=== PATIENT | female | born 1990 ===

== ENCOUNTER 2017-04-25 13:09 | Emergency (ER) | payer MEDICAID, OTHER ==
[2017-04-25 13:56] VITALS: BP 130/69; PULSE 78; RESP 18; TEMP 98.1; O2SAT 100
[2017-04-25 14:36] LABS: RBC URINE 114 /hpf (0-3); URINE BILIRUBIN NEGATIVE (NEGATIVE); URINE BLOOD 3+ (NEGATIVE); URINE COLOR Yellow (YELLOW); URINE GLUCOSE (UA) NORMAL (Normal); URINE KETONE NEGATIVE (NEGATIVE); URINE LEUKOCYTE ESTERASE 2+ Leu/uL (Negative); URINE PROTEIN 1+ mg/dL (NEGATIVE); URINE UROBILINOGEN NORMAL mg/dL (0.2-1.0); WBC URINE 116 /hpf (0-5)
[2017-04-25] MEDS ORDERED: cefTRIAXone (Rocephin) 250 mg Inj IM STA (15:13)
--- NOTE | 2017-04-25 15:38 | C.PDOC ---
History Of Present Illness 26 yr old female presents to the ER with complaints of dysuria and blood when she wipes with small clots since 4am today. Patient recently admits to having unprotected sex. Patient also reports of clear, vagina discharge which she states is typical for her. Patient reports LMP was 04/13/17 and usually has regular menses. Patient denies fever, chills, chest pain, SOB, cough, nausea, vomiting, weakness or numbness. Time Seen by Provider: 04/25/17 13:57 Chief Complaint (Nursing): Female Genitourinary History Per: Patient History/Exam Limitations: no limitations Onset/Duration Of Symptoms: Sudden Onset (Since 4am today) Current Symptoms Are (Timing): Still Present Past Medical History Reviewed: Historical Data, Nursing Documentation, Vital Signs Vital Signs: Last Vital Signs Temp 98.1 F 04/25/17 13:52 Pulse 78 04/25/17 13:52 Resp 18 04/25/17 13:52 BP 130/69 04/25/17 13:52 Pulse Ox 100 04/25/17 15:38 - Medical History PMH: Depression Family History: States: No Known Family Hx - Social History Hx Tobacco Use: No Hx Alcohol Use: No Hx Substance Use: No - Immunization History Hx Tetanus Toxoid Vaccination: No Hx Influenza Vaccination: No Hx Pneumococcal Vaccination: No Review Of Systems Except As Marked, All Systems Reviewed And Found Negative. Constitutional: Negative for: Fever, Chills Cardiovascular: Negative for: Chest Pain Respiratory: Negative for: Cough, Shortness of Breath Gastrointestinal: Negative for: Nausea, Vomiting Genitourinary: Positive for: Dysuria, Vaginal Discharge (Clear. Typical for patient.), Vaginal Bleeding (Upon wiping, with clots.) Neurological: Negative for: Weakness, Numbness Physical Exam - Physical Exam Appears: Non-toxic, No Acute Distress Skin: Warm, Dry, No Rash Head: Atraumatic, Normacephalic Oral Mucosa: Moist Chest: Symmetrical, No Tenderness Cardiovascular: Rhythm Regular, No Murmur Respiratory: Normal Breath Sounds, No Rales, No Rhonchi, No Stridor, No Wheezing Gastrointestinal/Abdominal: Soft, Tenderness (Mild tenderness, superpubic.) Pelvic: No Vaginal Bleeding, Vaginal Discharge (Scant,k white discharge at cervix. ), Cervical Motion Tenderness, Adnexal Tenderness (Right), Other ( Cervix appears friable and erythematous.) Extremity: Normal ROM, No Swelling Neurological/Psych: Oriented x3, Normal Speech, Normal Motor ED Course And Treatment O2 Sat by Pulse Oximetry: 100 (RA) Pulse Ox Interpretation: Normal Progress Note: PLAN: Chlamydia GC, HCG, Urinalysis, Zithromycin PO & Rocephin IM. Disposition Counseled Patient/Family Regarding: Studies Performed, Diagnosis, Need For Followup, Rx Given - Disposition Referrals: Lety Montemayor MD [Medical Doctor] - Disposition: HOME/ ROUTINE Disposition Time: 15:40 Condition: STABLE Additional Instructions: FOLLOW UP WITH YOUR OCCUPANCY SPECIALIST WITHIN 1 WEEK USE MEDICATIONS UNTIL FINISHED RETURN TO ER IF SYMPTOMS WORSEN Prescriptions: Ciprofloxacin [Cipro] 1 tab PO BID #14 tab metroNIDAZOLE [Flagyl] 500 mg PO BID #14 tab Instructions: Cervicitis (ED), Urinary Tract Infection in Women (ED) Forms: [employer] (Pakistani) Print Language: ITALIAN - POA Present On Arrival: None - Clinical Impression Clinical Impression: Cervicitis, Urinary tract infection - Scribe Statement The provider has reviewed the documentation as recorded by the Chad Rojas Provider Attestation: All medical record entries made by the Chad were at my direction and personally dictated by me. I have reviewed the chart and agree that the record accurately reflects my personal performance of the history, physical exam, medical decision making, and the department course for this patient. I have also personally directed, reviewed, and agree with the discharge instructions and disposition.
== END 2017-04-25 16:07 | disposition home or self-care (01) ==
LOC: C.ER 13:09
DX: N72 Inflammatory disease of cervix uteri (principal); N39.0 Urinary tract infection, site not specified
CPT/HCPCS: 81001; 84703; 87086; 87181; 87491; 87591; 96372; 99284; J0696

== ENCOUNTER 2017-08-28 14:19 | Emergency (ER) | payer MEDICAID ==
[2017-08-28 14:29] VITALS: RESP 18
--- NOTE | 2017-08-28 15:15 | C.PDOC ---
History Of Present Illness 27 y/o female with history of ovarian cyst and currently 7 weeks presents to ED with complaints of abdominal pain and dysuria x3 days. Patient states she has OBGYN but has not had pre care yet. Patient denies fever, chills, back pain, vaginal bleeding or any other complaints at this time. LMP as per patient. Time Seen by Provider: 08/28/17 14:58 Chief Complaint (Nursing): Female Genitourinary History Per: Patient History/Exam Limitations: no limitations Onset/Duration Of Symptoms: Days Current Symptoms Are (Timing): Still Present Quality Of Discomfort: "Pain" Associated Symptoms: Urinary Symptoms Past Medical History Reviewed: Historical Data, Nursing Documentation, Vital Signs Vital Signs: Last Vital Signs Temp 98.3 F 08/28/17 14:26 Pulse 95 H 08/28/17 17:27 Resp 18 08/28/17 17:27 BP 119/74 08/28/17 17:27 Pulse Ox 100 08/28/17 18:22 - Medical History PMH: Depression, Gastritis Surgical History: No Surg Hx Family History: States: No Known Family Hx - Social History Hx Tobacco Use: No Hx Alcohol Use: No Hx Substance Use: No - Immunization History Hx Tetanus Toxoid Vaccination: No Hx Influenza Vaccination: No Hx Pneumococcal Vaccination: No Review Of Systems Constitutional: Negative for: Fever, Chills Gastrointestinal: Positive for: Abdominal Pain. Negative for: Nausea, Vomiting Genitourinary: Positive for: Dysuria. Negative for: Vaginal Discharge, Vaginal Bleeding Musculoskeletal: Negative for: Back Pain Skin: Negative for: Rash Physical Exam - Physical Exam Appears: Non-toxic, No Acute Distress Skin: Normal Color, Warm, No Rash Head: Atraumatic, Normacephalic Oral Mucosa: Moist Neck: Normal ROM, Supple Chest: Symmetrical Cardiovascular: Rhythm Regular Respiratory: Normal Breath Sounds, No Rales, No Rhonchi, No Wheezing Gastrointestinal/Abdominal: Soft, Tenderness (Suprapubic), No Guarding, No Rebound Back: No CVA Tenderness Extremity: Normal ROM, Capillary Refill (<2 seconds) Neurological/Psych: Oriented x3 ED Course And Treatment - Laboratory Results Result Diagrams: 08/28/17 15:40 08/28/17 15:40 Lab Interpretation: Normal Urine POC: Positive O2 Sat by Pulse Oximetry: 100 (RA) Pulse Ox Interpretation: Normal - CT Scan/US No standard instances Other Rad Studies (CT/US): Read By Radiologist, Radiology Report Reviewed CT/US Interpretation: Findings: The uterus measures approximately 9.2 x 4.6 x 6.6 cm. Cervix length measures approximately 3.4 cm. Endometrial thickness measures approximately 1.4 cm. Cystic structure which may represent gestational sac measures 5 mm, out of range for gestational age calculation. No evidence of yolk sac or pole at this time. The right ovary measures 3.8 x 2.2 x 2.8 cm and contains heterogeneous complex lesion measuring approximately 1.7 x 1.4 x 2 cm, possibly corpus luteal cyst. The left ovary measures 3.7 x 2.0 x 2.6 cm. Blood flow was demonstrated to both ovaries. Small pelvic free fluid. Impression: 5 mm cystic structure within the endometrium, may represent gestational sac, out of range for gestational age calculation. Recommend correlation with quantitative beta HCG and short interval follow-up. No evidence of yolk sac or pole at this time. Small pelvic free fluid. 2 cm right ovarian complex lesion, possibly corpus luteal cyst. Attention on follow-up. Progress Note: on re-evaluation abdomen soft non-tender. Advised to follow up with ED in 2 days Reassessment Condition: Unchanged Medical Decision Making Medical Decision Making: Plan: Blood work, UA, US trans vaginal Disposition Counseled Patient/Family Regarding: Studies Performed, Diagnosis, Need For Followup, Rx Given - Disposition Referrals: Jc Aldridge [Staff Provider] - [facility] [Outside] [facility] [Outside] Disposition: HOME/ ROUTINE Disposition Time: 18:20 Condition: STABLE Additional Instructions: Return to ED if any increase abdominal pain or bleeding Return to ED ifor repeat blood test in 2 days Instructions: Abdominal Pain in (ED) Forms: [employer] (Mauritian) - POA Present On Arrival: None - Clinical Impression Clinical Impression: Abdominal pain, - PA / PROVIDER RELATIONS SPECIALIST / Resident Statement MD/DO has reviewed & agrees with the documentation as recorded. - Scribe Statement The provider has reviewed the documentation as recorded by the Minaibwallace Hastings All medical record entries made by the Scribe were at my direction and personally dictated by me. I have reviewed the chart and agree that the record accurately reflects my personal performance of the history, physical exam, medical decision making, and the department course for this patient. I have also personally directed, reviewed, and agree with the discharge instructions and disposition.
[2017-08-28 15:30] LABS: SQUAMOUS EPITHIAL 22 /hpf (0-5); URINE BACTERIA RARE (<OCC); URINE BILIRUBIN NEGATIVE (NEGATIVE); URINE BLOOD 2+ (NEGATIVE); URINE CLARITY Hazy (Clear); URINE COLOR Yellow (YELLOW); URINE GLUCOSE (UA) NORMAL (Normal); URINE LEUKOCYTE ESTERASE 3+ Leu/uL (Negative); URINE NITRATE NEGATIVE (NEGATIVE); URINE PROTEIN 1+ mg/dL (NEGATIVE); URINE UROBILINOGEN NORMAL mg/dL (0.2-1.0)
[2017-08-28 15:31] LABS: HCG,QUALITATIVE URINE POSITIVE (NEGATIVE)
[2017-08-28 15:56] LABS: BASO % 0.3 % (0.0-2.0); EOS # 0.1 K/uL (0.0-0.7); EOS % 0.8 % (0.0-4.0); HEMOGLOBIN 12.9 g/dL (11.0-16.0); LYMPH # 2.6 K/uL (1.0-4.3); LYMPH % 31.5 % (20.0-40.0); MEAN CELL VOLUME 88.6 fL (81.0-99.0); MEAN CORPUSCULAR HEMOGLOBIN 30.2 pg (27.0-31.0); MEAN PLATELET VOLUME 8.3 fL (7.2-11.7); MONO # 0.6 K/uL (0.0-0.8); MONO % 6.8 % (0.0-10.0); NEUT % 60.6 % (50.0-75.0); NRBC % 0.1 % (0.0-2.0); RBC 4.28 Mil/uL (3.80-5.20); WHITE BLOOD COUNT 8.2 K/uL (4.8-10.8)
[2017-08-28 16:02] LABS: ALB/GLOB RATIO 1.3 (1.0-2.1); ALBUMIN 4.4 g/dL (3.5-5.0); ALT/SGPT 22 U/L (9-52); AST/SGOT 28 U/L (14-36); BLOOD UREA NITROGEN 10 mg/dL (7-17); CALCIUM 8.9 mg/dl (8.6-10.4); GFR AFRICAN-AMERICAN > 60; GFR NON-AFRICAN AMERICAN > 60
--- NOTE | 2017-08-28 18:01 | US ---
Indication: Bleeding Comparison: None available Technique: Real-time transabdominal pelvic ultrasound was performed. In addition a transvaginal pelvic ultrasound was necessary to better depict pelvic anatomy. Findings: The uterus measures approximately 9.2 x 4.6 x 6.6 cm. Cervix length measures approximately 3.4 cm. Endometrial thickness measures approximately 1.4 cm. Cystic structure which may represent gestational sac measures 5 mm, out of range for gestational age calculation. No evidence of yolk sac or pole at this time. The right ovary measures 3.8 x 2.2 x 2.8 cm and contains heterogeneous complex lesion measuring approximately 1.7 x 1.4 x 2 cm, possibly corpus luteal cyst. The left ovary measures 3.7 x 2.0 x 2.6 cm. Blood flow was demonstrated to both ovaries. Small pelvic free fluid. Impression: 5 mm cystic structure within the endometrium, may represent gestational sac, out of range for gestational age calculation. Recommend correlation with quantitative beta HCG and short interval follow-up. No evidence of yolk sac or pole at this time. Small pelvic free fluid. 2 cm right ovarian complex lesion, possibly corpus luteal cyst. Attention on follow-up.
[2017-08-28 18:34] VITALS: BP 103/69; PULSE 90; TEMP 97.8; O2SAT 98
== END 2017-08-28 18:49 | disposition home or self-care (01) ==
LOC: C.ER 14:19
DX: O26.891 Other specified pregnancy related conditions, first trimester (principal); R10.30 Lower abdominal pain, unspecified; Z3A.00 Weeks of gestation of pregnancy not specified